=== PATIENT | female | born 1965 | race Two or more races ===

== ENCOUNTER 2019-12-19 13:49 | Inpatient (IN) | payer OTHER ==
[~2019-12-19] VITALS: Ht 160 cm; Wt 85.3 kg
[2019-12-19] MEDS ORDERED: ACETAMINOPHEN 325 MG TABLET PO PRN (14:30)
[2019-12-19] MEDS ORDERED: BLOOD SUGAR DIAGNOSTIC 1 EACH STRIP IN ONE (14:30)
[2019-12-19] MEDS ORDERED: MAG HYDROX/AL HYDROX/SIMETH 30 ML UDC PO PRN (14:30)
[2019-12-19] MEDS ORDERED: TEMAZEPAM 7.5 MG CAPSULE PO PRN (14:30)
[2019-12-19] MEDS ORDERED: clonazePAM 0.5 MG TABLET PO PRN (14:30)
[2019-12-19] MEDS ORDERED: MAGNESIUM HYDROXIDE 30 ML UDC PO PRN (14:30)
[2019-12-19] MEDS ORDERED: DOCU-141 PO (15:04)
[2019-12-19] MEDS ORDERED: GLIP10TA21 PO (15:04)
[2019-12-19] MEDS ORDERED: METF-442 PO (15:04)
[2019-12-19] MEDS ORDERED: LORA-259 PO (15:04)
[2019-12-19 16:00] VITALS: BP 130/79
--- NOTE | 2019-12-19 16:23 | NUR ---
GPS/RN-NOTES ADMITTED 54 YEARS OLD FEMALE PATIENT FROM [facility] [id number] HOLD FOR DTS. UPON FACE TO FACE ASSESSMENT, PATIENT A/O X4 AMBULATORY STEADY GAIT. PATIENT DENIES SI/HI AT THIS TIME. PATIENT VERBALIZED FEELING DEPRESSED, ALSO STATED" I HAVE ANXIETY ATTACK THAT TURNS INTO HEADACHE TENSION DUE TO PRESSURE AT MY WORK". PATIENT SIGNS ALL ADMISSION PAPERS, CONTRABAND AND FULL BODY ASSESSMENT DONE. ADVISEMENT AND PATIENT'S RIGHT BOOKLET WAS GIVEN TO THE PATIENT. PATIENT WAS ORIENTED IN THE UNIT AND UNIT POLICIES. PATIENT DTR RUBÉN SANDERS ([phone]) MADE AWARE OF THE ADMISSION. DR. GUSMAN MADE AWARE WITH ORDERS. ALSO DR. ADAIR AWARE AND WILL RECONCILE PT'S MEDICATIONS.
--- NOTE | 2019-12-19 17:25 | NUR ---
GPS /RN-NOTES RECEIVED T.O ORDER OF ACCU-CHECK AC/HS WITH MODERATE SLIDING SCALE FROM DR. ADAIR . NOTED AND CARRIED OUT.
[2019-12-19] MEDS ORDERED: DEXTROSE 50%-WATER 50 ML DISP.SYRIN IV PRN (17:30)
[2019-12-19] MEDS: METFORMIN 500 MG TABLET PO SCH (17:35)
[2019-12-19] MEDS: INSULIN REGULAR, HUMAN 100 UNIT/ML 3 ML VIAL SQ PRN (18:50)
[2019-12-19 20:00] VITALS: BP 143/73
[2019-12-19] MEDS: BLOOD SUGAR DIAGNOSTIC 1 EACH STRIP VI SCH (22:05)
[2019-12-19] MEDS: *INSULIN REGULAR(HUMULIN R)HUM 100 UNIT/ML VIAL SQ PRN (22:07)
[2019-12-20] MEDS: BLOOD SUGAR DIAGNOSTIC 1 EACH STRIP VI SCH ×4 (07:49→21:41)
[2019-12-20 07:53] LABS: ALBUMIN 3.5 g/dL (3.4-5.0); BILIRUBIN,TOTAL 0.3 mg/dL (0.2-1.0); CREATININE 0.7 mg/dL (0.6-1.3); TOTAL PROTEIN, SERUM 7.3 g/dL (6.4-8.2)
[2019-12-20 08:00] VITALS: BP 147/64
[2019-12-20] MEDS ORDERED: ESCITALOPRAM OXALATE (10 MG) 10 MG TABLET PO SCH (09:00)
[2019-12-20] MEDS: METFORMIN 500 MG TABLET PO SCH ×2 (09:43→17:22)
[2019-12-20] MEDS: DOCUSATE SODIUM 100 MG CAPSULE PO SCH (09:43)
[2019-12-20] MEDS: glipiZIDE XL 10 MG TAB.OSM.24 PO SCH (09:44)
[2019-12-20] MEDS: INSULIN REGULAR, HUMAN 100 UNIT/ML 3 ML VIAL SQ PRN ×3 (09:45→17:30)
[2019-12-20] MEDS ORDERED: CEFTRIAXONE 1 G in IV D5W 50 ML IV SCH (12:00)
--- NOTE | 2019-12-20 12:03 | NUR ---
Family Contact: SW called the pts daughter, Mckenna ([phone]), and left a voicemail stating that the SW would like to discuss the pts treatment and discharge plan.
--- NOTE | 2019-12-20 12:11 | NUR ---
UR Note: SW called the pts [facility] Camper Assembler, Surya ([phone]), and conducted a clinical on her voicemail requesting additional authorization for this pt with coverage for the weekend. The adult protective caseworker voicemail message stated that they are packed with clients at the time and may not be able to get to the request until the next day.
--- NOTE | 2019-12-20 13:52 | NUR ---
UR Note: [facility] Cleaner, Surya ([phone]), called the SW and stated that she needs more information and the SW attempted to give as much as she could through the nursing notes as the pt has not been seen by a psychiatrist at this time. manager hris stated that she will call back with how long the pt will be authorized.
--- NOTE | 2019-12-20 15:25 | NUR ---
Initial Discharge Plan: Pt currently resides at [address] [place] [address], [address], [place] [address]; ([phone]). Per pt, she would like to return to her home. SW will work with the pt and the MD regarding appropriate discharge planning. SW will form a safe and proper discharge plan.
[2019-12-20 16:00] VITALS: BP 117/81
[2019-12-20 21:12] VITALS: BP 146/58
[2019-12-20] MEDS: *INSULIN REGULAR(HUMULIN R)HUM 100 UNIT/ML VIAL SQ PRN (21:37)
[2019-12-21] MEDS: BLOOD SUGAR DIAGNOSTIC 1 EACH STRIP VI SCH ×4 (07:28→21:27)
[2019-12-21] MEDS: INSULIN REGULAR, HUMAN 100 UNIT/ML 3 ML VIAL SQ PRN ×2 (07:31→11:44)
[2019-12-21 08:00] VITALS: BP 109/67
[2019-12-21] MEDS: ESCITALOPRAM OXALATE (10 MG) 10 MG TABLET PO SCH (08:43)
[2019-12-21] MEDS: DOCUSATE SODIUM 100 MG CAPSULE PO SCH (08:43)
[2019-12-21] MEDS: glipiZIDE XL 10 MG TAB.OSM.24 PO SCH (08:43)
[2019-12-21] MEDS: METFORMIN 500 MG TABLET PO SCH ×2 (08:43→17:11)
[2019-12-21 16:00] VITALS: BP 130/75
[2019-12-21 20:44] VITALS: BP 131/76
[2019-12-21] MEDS: *INSULIN REGULAR(HUMULIN R)HUM 100 UNIT/ML VIAL SQ PRN (21:29)
[2019-12-22] MEDS: BLOOD SUGAR DIAGNOSTIC 1 EACH STRIP VI SCH ×4 (07:34→21:32)
[2019-12-22] MEDS: INSULIN REGULAR, HUMAN 100 UNIT/ML 3 ML VIAL SQ PRN ×3 (07:37→16:59)
[2019-12-22 08:00] VITALS: BP 120/78
[2019-12-22] MEDS: ESCITALOPRAM OXALATE (10 MG) 10 MG TABLET PO SCH (08:57)
[2019-12-22] MEDS: METFORMIN 500 MG TABLET PO SCH ×2 (08:57→16:34)
[2019-12-22] MEDS: DOCUSATE SODIUM 100 MG CAPSULE PO SCH (08:57)
[2019-12-22] MEDS: glipiZIDE XL 10 MG TAB.OSM.24 PO SCH (08:59)
[2019-12-22 16:02] VITALS: BP 135/74
[2019-12-22 19:51] VITALS: BP 107/68
[2019-12-22] MEDS: *INSULIN REGULAR(HUMULIN R)HUM 100 UNIT/ML VIAL SQ PRN (21:32)
[2019-12-23] MEDS: BLOOD SUGAR DIAGNOSTIC 1 EACH STRIP VI SCH ×2 (07:38→11:39)
[2019-12-23] MEDS: *INSULIN REGULAR(HUMULIN R)HUM 100 UNIT/ML VIAL SQ PRN (07:40)
[2019-12-23 08:00] VITALS: BP 129/74
[2019-12-23] MEDS: METFORMIN 500 MG TABLET PO SCH (08:55)
[2019-12-23] MEDS: glipiZIDE XL 10 MG TAB.OSM.24 PO SCH (08:56)
[2019-12-23] MEDS: DOCUSATE SODIUM 100 MG CAPSULE PO SCH (08:57)
[2019-12-23] MEDS ORDERED: ESCITALOPRAM OXALATE (10 MG) 10 MG TABLET PO SCH (09:00)
--- NOTE | 2019-12-23 10:00 | NUR ---
UR Note: SW called the pts [facility] Burgl[employer] Alarm Installer, Meron ([phone]), and conducted a discharge clinical for the pt on her voicemail.
--- NOTE | 2019-12-23 10:58 | NUR ---
Discharge Note: Pt was discharged to her home located at [address] [place] [address], [address], [place] [address]; ([phone]). Pts partner, Ru Claudio ([phone]), picked up the pt around 12PM. Upon discharge, the pt appeared to be in a euthymic mood and presents with a calm affect. Pt appears to be alert and oriented x4 (time, place, self and situation). Pt appears to be well groomed and appropriately dressed. Pt is ambulatory and appears to have fair physical health. Pt denied visual/auditory hallucinations and denied suicidal/homicidal ideation. Pt will be under the care of psychiatrist, Dr. [place] [address] [place], [address]; ; and a referral fax was sent to: [phone]. Pt will also be under the care of her web architect, Dr. Heather Benedict, located at [address] [place] [address]; . Pt has an appointment on 01/01/20 at 12pm.
[2019-12-23] MEDS: INSULIN REGULAR, HUMAN 100 UNIT/ML 3 ML VIAL SQ PRN (11:42)
--- NOTE | 2019-12-23 12:09 | NUR ---
Home Health Referral: LAM faxed a home health referral to [facility] with attention to Admissions to the fax number: [phone].
--- NOTE | 2019-12-23 12:36 | NUR ---
Home Health UR Referral: LAM faxed the home health referral to [facility] to the fax number: [phone].
--- NOTE | 2019-12-23 14:55 | NUR ---
VP INFORMATICS NOTE: 54 YEAR OLD FEMAL DISCHARGED HOME IN STABLE CONDITION. COMPLIANT WITH MEDICATIONS, COOPERATIVE WITH TREATMENT PLANS. PATIENT DENIES SI/HI AND INSTRUCTED TO GO TO THE CLOSEST ER IF DEVELOPING SI/HI. BEHAVIOR IMPROVED, PSYCHIATRIC TREATMENT PLANS MET, MEDICAL TREATMENT PLANS DEFERRED FOR CONTINUAL MONITORING. EDUCATED PATIENT ABOUT AFTER CARE PLAN AND COPY PROVIDED. RETURNED PERSONAL BELONGINGS TO PATIENT. MEDICATIONS RECONCILED WITH YEISON Mederos AND DR. GUSMAN. PATIENT SIGNED DISCHARGE PAPERWORK. SKIN INTACT ON ADMIT AND DISCHARGE. PATIENT ID BAND REMOVED. PATIENT LEFT THE UNIT AT 1455.
== END 2019-12-23 15:15 | disposition home or self-care (01) | DRG 885 ==
LOC: GPS 13:49
PROVIDERS: ADMIT Psychiatry & Neurology Psychiatry; ATTEND Nurse Practitioner Acute Care
DX: F33.2 Major depressive disorder, recurrent severe without psychotic features (principal); R45.851 Suicidal ideations; F29 Unspecified psychosis not due to a substance or known physiological condition; F41.9 Anxiety disorder, unspecified; Z73.6 Limitation of activities due to disability; R27.8 Other lack of coordination; E11.9 Type 2 diabetes mellitus without complications; Z79.899 Other long term (current) drug therapy; I10 Essential (primary) hypertension
CPT/HCPCS: 36415; 80053-TC; 80061-TC; 82962-TC; 87081-TC; J0696; J1815; J7060